=== PATIENT | female | born 1960 | race Caucasian/White ===

== ENCOUNTER → 2018-05-20 | Outpatient (CLI) | payer OTHER ==
--- NOTE | 2018-05-20 17:01 | XR ---
EXAMINATION TYPE: XR chest 2V DATE OF EXAM: 05/20/2018 COMPARISON: 09/02/2014 HISTORY: 58-year-old female with cough TECHNIQUE: Frontal and lateral views FINDINGS: The cardiomediastinal silhouette, aorta, and pulmonary vasculature are within normal limits. Biapical pleural-parenchymal scarring and a chronic calcified lesion within the right breast. No consolidatio n or pleural effusion. IMPRESSION: Chronic changes without acute cardiopulmonary process.
== END | disposition home or self-care (01) ==
LOC: RADXRYALE 15:09
PROVIDERS: ATTEND Physician Assistant Medical
DX: R91.8 Other nonspecific abnormal finding of lung field (principal); R05 Cough
CPT/HCPCS: 71046

== ENCOUNTER → 2018-05-27 | Outpatient (CLI) | payer OTHER ==
--- NOTE | 2018-05-28 08:51 | MM ---
Reason for exam: clinical finding. Last mammogram was performed 1 year and 10 months ago. History: Patient is postmenopausal and had first child at age 30. Took estrogen for 2 years beginning at age 52. Physical Findings: Nurse Summary: a 1 cm lesion at 12 o'clock right breast. MG 3D Diag Mammo W/Cad JOSIAS Bilateral CC and MLO view(s) were taken. Prior study comparison: August 01, 2016, bilateral MG screening mammo w CAD. December 05, 2014, bilateral MG screening mammo w CAD. March 03, 2013, bilateral digital screening mammo w/CAD. There are benign grouped distrophic calcifications bilateral. Chronic nodularity right breast. No discrete abnormality. BB at palpable corresponds to chronic nodules. These results were verbally communicated with the patient and result sheet given to the patient on 05/27/18. ASSESSMENT: Benign, BI-RAD 2 RECOMMENDATION: Routine screening mammogram of both breasts in 1 year.
== END | disposition home or self-care (01) ==
LOC: RADMAMWWP 10:23
PROVIDERS: ATTEND Family Medicine
DX: N63.10 Unspecified lump in the right breast, unspecified quadrant (principal); R92.8 Other abnormal and inconclusive findings on diagnostic imaging of breast
CPT/HCPCS: 77062; 77066

== ENCOUNTER → 2019-02-18 | Outpatient (CLI) | payer OTHER ==
--- NOTE | 2019-02-18 14:50 | XR ---
EXAMINATION TYPE: XR chest 2V DATE OF EXAM: 02/18/2019 COMPARISON: Chest x-ray May 20, 2018. HISTORY: Cough and shortness of breath for one month. TECHNIQUE: Frontal and lateral views of the chest are obtained. FINDINGS: There is chronic parenchymal change bilaterally with moderate biapical pleural/parenchymal scarring. There is roughly 1 cm right basilar calcified granuloma or nodule redemonstrated. There is no new suspicious focal air space opacity, pleural effusion, or pneumothorax seen. The cardiac silho uette size remains within normal limits with atherosclerotic thoracic aorta. The osseous structures are intact. Cholecystectomy clips are noted. IMPRESSION: Chronic changes without acute pulmonary process.
== END | disposition home or self-care (01) ==
LOC: RADXRYALE 13:32
PROVIDERS: ATTEND Physician Assistant Medical
DX: J98.4 Other disorders of lung (principal); R05 Cough
CPT/HCPCS: 71046

== ENCOUNTER → 2020-07-25 | Outpatient (CLI) | payer OTHER ==
--- NOTE | 2020-07-27 11:21 | MM ---
Reason for exam: screening (asymptomatic). Last mammogram was performed 2 years and 2 months ago. History: Patient is postmenopausal and had first child at age 30. Took estrogen for 2 years beginning at age 52. Physical Findings: A clinical breast exam by your physician is recommended on an annual basis and results should be correlated with mammographic findings. MG Screening Mammo w CAD Bilateral CC and MLO view(s) were taken. Prior study comparison: May 27, 2018, bilateral MG 3d diag mammo w/cad JOSIAS. August 01, 2016, bilateral MG screening mammo w CAD. There are scattered fibroglandular densities. Benign appearing bilateral calcifications. No significant changes when compared with prior studies. ASSESSMENT: Benign, BI-RAD 2 RECOMMENDATION: Routine screening mammogram of both breasts in 1 year.
--- NOTE | 2020-07-27 20:33 | BD ---
EXAMINATION TYPE: Axial Bone Density DATE OF EXAM: 07/25/2020 COMPARISON: NONE CLINICAL HISTORY: Height: 5 FT 1 IN Weight: 131 FRAX RISK QUESTIONS: Alcohol (3 or more units per day): NO Family History (Parent hip fracture): NO Glucocorticoids (More than 3mos): YES (Ex: prednisone, prednisolone, methylprednisolone, dexamethasone, and hydrocortisone). History of Fracture in Adulthood: NO Secondary Osteoporosis: 1. Type 1 Diabetes: NO 2. Hyperthyroidism: NO 3. Menopause before 45: NO 4. Malnutrition: NO 5. Chronic liver disease: NO Rheumatoid Arthritis: NO Current Tobacco Use: YES RISK FACTORS HISTORY OF: Family History of Osteoporosis: UNKNOWN Active: YES Postmenopausal woman: TOTAL HYST AGE 47 MEDICATIONS: Thyroid Medications: YES Which medication: LEVOTHYROXINE How Lon YEARS Additional Medications: THEOPHYLINE,ASPIRIN, OMEPRAZOLE, LEVOTHYROXINE, VIT D , ZYRTEC ,NASOCORT N EEDED HYDROCODONE NEEDED Additional History: EXAM MEASUREMENTS: Bone mineral densitometry was performed using the [employer] System. Bone mineral density as measured about the Lumbar spine is: ----- L1-L4(G/cm2): 0.874 T Score Values are as follows: ----- L2: -2.6 ----- L3: -2.4 ----- L4: -2.7 ----- L1-L4: -2.5 Bone mineral density has: DECREASED -5.2 % since study of: 2015 Bone mineral density about the R hip (g/cm2): 0.813 Bone mineral density about the L hip (g/cm2): 0.776 T Score values are as follows: -----R Neck: -1.6 -----L Neck: -1.9 -----R Total: -1.8 -----L Total: -1.7 Bone mineral density has: DECREASED -2.1 % since study of: 2015 IMPRESSION: Osteoporosis (T Score less than -2.5). There is increased fracture risk and therapy is usually indicated based on age. Re-Screen 1-2 years. NOTE: T-SCORE=SD OF THE YOUNG ADULT MEAN.
== END | disposition home or self-care (01) ==
LOC: RADMAMWWP 13:54
PROVIDERS: ATTEND Family Medicine
DX: Z12.31 Encounter for screening mammogram for malignant neoplasm of breast (principal); M81.0 Age-related osteoporosis without current pathological fracture; J45.30 Mild persistent asthma, uncomplicated; F17.218 Nicotine dependence, cigarettes, with other nicotine-induced disorders
CPT/HCPCS: 77067; 77080

== ENCOUNTER → 2022-06-11 | Outpatient (CLI) | payer OTHER ==
--- NOTE | 2022-06-12 08:09 | BD ---
EXAMINATION TYPE: Axial Bone Density DATE OF EXAM: 06/11/2022 COMPARISON: 08/01/2016; STUDY FROM 07/25/2020 IS UNAVAILABLE CLINICAL HISTORY: 62 years year old Female. ICD-10 CODE: M85.9 DISORDER OF BONE Height: 60 IN Weight: 153 LBS FRAX RISK QUESTIONS: Secondary Osteoporosis: 2. Hyperthyroidism: YES 3. Menopause before 45: TOTAL HYST AGE 46 Current Tobacco Use: YES RISK FACTORS HISTORY OF: Active: MODERATE Postmenopausal woman: TOTAL HYST AGE 46 Take estrogen and/or progesterone medications: NOT NOW How lon YEAR MEDICATIONS: Thyroid Medications: YES Which medication: Levothyroxine How Lon+ YEARS Additional Medications: VIT D, LEVOTHYROXINE, THYEOPHLYNE, CLAUDY ASPIRIN, ANTACIDS, EXAM MEASUREMENTS: Bone mineral densitometry was performed using the [employer]. Bone mineral density as measured about the Lumbar spine is: ----- L1-L4(G/cm2): 0.897 T Score Values are as follows: ----- L1: -2.5 ----- L2: -2.5 ----- L3: -2.1 ----- L4: -2.4 ----- L1-L4: -2.4 Bone mineral density has: Decreased -2.3% since study of: 08/01/2016; STUDY FROM 07/25/2020 IS UNAVA ILABLE Bone mineral density about the R hip (g/cm2): 0.805 Bone mineral density about the L hip (g/cm2): 0.755 T Score values are as follows: -----R Neck: -1.7 -----L Neck: -2.0 -----R Total: -1.6 -----L Total: -1.9 Bone mineral density has: Decreased -2.5% since study of: 08/01/2016; STUDY FROM 07/25/2020 IS UNAVA ILABLE FRAX%s: The graph provided illustrates a 10.9 chance for a major osteoporotic fx and a 2.6 chance for the hips probability for fx in 10 years time. IMPRESSION: Osteopenia (T Score between -2.5 and -1). There is slightly increased risk of fracture and the patient may be considered for treatment. Re-Screen 2-5 years. NOTE: T-SCORE=SD OF THE YOUNG ADULT MEAN.
--- NOTE | 2022-06-12 09:48 | MM ---
Reason for Exam: Screening (asymptomatic). Last mammogram was performed 1 year(s) and 10 month(s) ago. Patient History: Menarche at age 11. First Full-Term at age 30. Late child-bearing (after 30). Left ovary removed at age 47. Right ovary removed at age 47. Hysterectomy at age 47. Postmenopausal. Estrogen for 2 years from age 52 until age 54. Risk Values: Anya 5 year model risk: 2.2%. NCI Lifetime model risk: 8.9%. Prior Study Comparison: 08/01/2016 Bilateral Screening Mammogram, [facility]. 05/27/2018 Bilateral Diagnostic Mammogram, [facility]. 07/25/2020 Bilateral Screening Mammogram, [facility]. Tissue Density: The breast tissue is heterogeneously dense. This may lower the sensitivity of mammography. Findings: Analyzed By CAD. There is a very large coarse calcification within right breast. Additional coarse calcifications are within the bilateral breasts. There may be a nodule associated with calcifications on the right. Findings are stable from comparison. No suspicious groups of microcalcifications, spiculated or lobular masses, architectural distortion or other secondary signs of malignancy are mammographically apparent. Overall Assessment: Benign, BI-RAD 2 Management: Screening Mammogram of both breasts in 1 year. A negative mammogram report should not preclude additional follow up of suspicious palpable abnormalities. Patient should continue monthly self breast exam. A clinical breast exam by your physician is recommended on an annual basis and results should be correlated with mammographic findings. Electronically signed and approved by: Arjun Celis D.O. Radiologis
--- NOTE | 2022-06-12 10:47 | CA ---
Transthoracic Echo Report Name: Merari Ramires Age: 62 Gender: F : 1960 Exam Date: 06/11/2022 14:58 Exam Location: [facility] Ht (in): 62 Wt (lb): 150 Ordering Physician: Joe Arias DO Attending/Referring Phys: Kay Lee PAC Archivist Political History Margi Mccann RDCS Procedure CPT: Indications: Z12.31 screening, R01.1 cardiac murmur Cardiac Hx: Technical Quality: Contrast 1: Total Dose (mL): Contrast 2: Total Dose (mL): MEASUREMENTS (Male / Female) Normal Values 2D ECHO LV Diastolic Diameter PLAX 4.1 cm 4.2 - 5.9 / 3.9 - 5.3 cm LV Systolic Diameter PLAX 2.7 cm IVS Diastolic Thickness 1.2 cm 0.6 - 1.0 / 0.6 - 0.9 cm LVPW Diastolic Thickness 1.1 cm 0.6 - 1.0 / 0.6 - 0.9 cm LV Relative Wall Thickness 0.6 LA Systolic Diameter LX 3.0 cm 3.0 - 4.0 / 2.7 - 3.8 cm LA Volume 45.3 cm??? 18 - 58 / 22 - 52 cm??? M-MODE Aortic Root Diameter MM 2.5 cm LA Systolic Diameter MM 3.6 cm LA Ao Ratio MM 1.4 MV E Point Septal Separation 0.7 cm AV Cusp Separation MM 1.6 cm DOPPLER MV Area PHT 2.8 cm??? Mitral E Point Velocity 73.4 cm/s Mitral A Point Velocity 87.4 cm/s Mitral E to A Ratio 0.8 MV Deceleration Time 267.2 ms MV E' Velocity 7.1 cm/s Mitral E to MV E' Ratio 10.3 TR Peak Velocity 267.0 cm/s TR Peak Gradient 28.5 mmHg Right Ventricular Systolic Press 32.4 mmHg FINDINGS Left Ventricle Normal left ventricular size, wall thickness, left ventricular ejection fraction is estimated at 55 %. Right Ventricle The right ventricle is normal in size and function. Right Atrium The right atrium is normal in size. Left Atrium The left atrium is normal in size. Mitral Valve Structurally normal mitral valve without significant stenosis or prolapse. There is mild mitral regurgitation. Aortic Valve Structurally normal aortic valve without significant sclerosis or stenosis. There is no aortic regurgitation. Tricuspid Valve Structurally normal tricuspid valve without significant stenosis. Pulmonary artery systolic pressure is normal. Pulmonic Valve Structurally normal pulmonic valve without significant stenosis. There is no pulmonic regurgitation. Pericardium Normal pericardium without effusion. Aorta Normal aortic root dimension. CONCLUSIONS Left ventricular EF 55% Mild mitral regurgitation No aortic stenosis or aortic regurgitation RVSP 32 Previewed by: Dr. Jeremiah Arroyo DO (Electronically Signed) Final Date: 12 June 2022 10:46
== END | disposition home or self-care (01) ==
LOC: RADECHMAIN 14:46
PROVIDERS: ATTEND Family Medicine
DX: Z12.31 Encounter for screening mammogram for malignant neoplasm of breast (principal); I34.0 Nonrheumatic mitral (valve) insufficiency; M81.0 Age-related osteoporosis without current pathological fracture; Z78.0 Asymptomatic menopausal state
CPT/HCPCS: 77067; 77080; 93306

== ENCOUNTER → 2023-12-29 | Outpatient (CLI) | payer OTHER, MEDICARE ==
--- NOTE | 2023-12-30 13:12 | CT ---
EXAMINATION TYPE: CT facial bones wo con CT DLP: 489.60 mGycm, Automated exposure control for dose reduction was used. DATE OF EXAM: 12/29/2023 1:51 PM COMPARISON: . CLINICAL INDICATION:Female, 63 years old with history of J32.9 sinusitis; PHH, Chronic maxillary sinu sitis TECHNIQUE: Multiple unenhanced axial CT images were obtained of the facial bones soft tissue and bone windows. Coronal, axial and sagittal reformatted images were also provided in soft tissue and bone windows and submitted for interpretation. Additional 3-D reformatted images were obtained on a [employer] workstation. . Contrast used: mL of , (none if empty) Oral contrast used: (none if empty) FINDINGS: There is no evidence of fracture, subluxation, dislocation, or significant soft tissue swelling. The orbital contents are unremarkable. The temporal-mandibular joints appear symmetric. The visualized po rtion of the paranasal sinuses demonstrate scattered mild to moderate sinus disease. IMPRESSION: Scattered mild/moderate sinus disease paranasal sinuses.
== END | disposition home or self-care (01) ==
LOC: RADCTMAIN 13:28
PROVIDERS: ATTEND Family Medicine
DX: J34.89 Other specified disorders of nose and nasal sinuses (principal)
CPT/HCPCS: 70486

== ENCOUNTER → 2024-02-17 | Outpatient (CLI) | payer OTHER, MEDICARE ==
--- NOTE | 2024-02-17 18:22 | CTL ---
EXAMINATION TYPE: CT Low Dose Lung DATE OF EXAM: 02/17/2024 5:54 PM CLINICAL INDICATION:Female, 64 years old with history of Z12.2 lung cancer scrn F17.210 current smok er; 1/2 PPD x45yrs. Current smoker. , history of tobacco use. COMPARISON: None TECHNIQUE: Multiple axial non-contrast scans were obtained from approximately the lung apices through the upper abdomen. Coronal and sagittal reformatted images were obtained. Low dose technique was uti lized. CT DLP: 68.0 mGycm, Automated exposure control for dose reduction was used. CT Contrast: Contrast used: None Oral contrast used: None FINDINGS: ======== Lack of intravenous contrast and low dose technique limits the evaluation of the vascular and soft ti ssue structures. LUNGS: No evidence of pulmonary fibrosis. No evidence of focal consolidation, pneumothorax or pleural effusion. Mild centrilobular emphysema changes. Nodules: RUL: None. RML: None. RLL: 6 x 3 mm series 5 image 43. ANNIKA: None. LLL: None. AIRWAY: Patent and unremarkable. HEART: Size within normal limits. MEDIASTINUM: No gross evidence of adenopathy. VASCULATURE: No aortic aneurysm. Mild atherosclerosis of the arterial vasculature. MUSCULOSKELETAL: Mild disc degeneration changes are present throughout the thoracolumbar spine. SOFT TISSUES/LYMPH NODES: Right breast calcifications that are large. LOWER NECK: No significant findings. UPPER ABDOMEN: No significant findings. IMPRESSION: 1. No clinically significant pulmonary nodules. 2. Mild emphysema. CT LUNG RAD AND CT CHEST RECOMMENDATION: Lung-Rad 2 Benign Appearance or Behavior: Continue annual sc reening with LDCT in 12 months. S Modifier (other clinically significant findings): None Recommend smoking cessation (if current smoker), or continuation of smoking cessation (if prior smoke r). Annual screening for lung cancer with low-dose computed tomography is recommended in adults ages 55 to 77 years who have a 30 pack-year smoking history and currently smoke or have quit within the pa st 15 years. Screening should be discontinued once a person has not smoked for 15 years or develops a health problem that substantially limits life expectancy or the ability or willingness to have curat purnima lung surgery. Lung rads 2021 [email or web address]
== END | disposition home or self-care (01) ==
LOC: RADCTMAIN 17:22
PROVIDERS: ATTEND Family Medicine
DX: Z12.2 Encounter for screening for malignant neoplasm of respiratory organs (principal); J43.2 Centrilobular emphysema; F17.210 Nicotine dependence, cigarettes, uncomplicated
CPT/HCPCS: 71271